=== PATIENT | male | born 1965 | race Caucasian/White ===

== ENCOUNTER 2024-02-06 07:57 | Emergency (ER) | payer OTHER ==
[~2024-02-06] VITALS: Ht 180.3 cm; Wt 78.5 kg
[2024-02-06] MEDS: triamcinolone acetonide 40mg/ml inj IM ONE (09:43)
[2024-02-06 09:49] VITALS: BP 132/71; PULSE 60; RESP 16; TEMP 97.8; O2SAT 99
== END 2024-02-06 09:49 | disposition home or self-care (01) ==
LOC: ER 07:58
DX: S50.862A Insect bite (nonvenomous) of left forearm, initial encounter (principal); M79.89 Other specified soft tissue disorders; W57.XXXA Bitten or stung by nonvenomous insect and other nonvenomous arthropods, initial encounter; Y93.89 Activity, other specified; Y92.89 Other specified places as the place of occurrence of the external cause; Y99.8 Other external cause status
CPT/HCPCS: 96372; 99283; J3301